=== PATIENT | female | born 1950 | race Caucasian/White ===

== ENCOUNTER 2016-04-12 17:46 | Emergency (ER) | payer MEDICARE, OTHER ==
--- NOTE | 2016-04-12 18:18 | ER Document Report ---
ED Medical Screen (RME) - General Chief Complaint: Back Pain Stated Complaint: BACK PAIN Time seen by provider: 18:17 Mode of Arrival: Wheelchair Information source: Patient Notes: 65-year-old female presents to ED for low back pain that started tonight when she was trying to move the bed about 5 PM states she heard a big pop. States pain goes from her back down hip down her legs bilaterally. Denies previous back pain. I have greeted and performed a rapid initial assessment of this patient. A comprehensive ED assessment and evaluation of the patient, analysis of test results and completion of medical decision making process will be conducted by an additional ED providers. TRAVEL OUTSIDE OF THE [place] IN LAST 30 DAYS: No - Related Data Allergies/Adverse Reactions: morphine [Morphine] Allergy (Verified 05/12/15 16:41) Penicillins Allergy (Verified 05/12/15 16:41) diphenhydramine HCl [From Benadryl] Adverse Reaction (Verified 05/12/15 16:41) Past Medical History - Past Medical History Cardiac Medical History: Reports: Hx Hypercholesterolemia Pulmonary Medical History: Reports: Hx COPD Endocrine Medical History: Reports: Hx Diabetes Mellitus Type 2 Psychiatric Medical History: Denies: Hx Depression Past Surgical History: Reports: Hx Hysterectomy, Hx Orthopedic Surgery - Kg Knee Arthroplasty, Hx Thyroid Surgery Physical Exam - Vital signs Vitals: Temp Pulse Resp BP Pulse Ox 97.5 F 72 22 H 119/57 L 97 04/12/16 18:10 04/12/16 18:10 04/12/16 18:10 04/12/16 18:10 04/12/16 18:10 Course - Vital Signs Vital signs: Temp Pulse Resp BP Pulse Ox 97.5 F 72 22 H 119/57 L 97 04/12/16 18:10 04/12/16 18:10 04/12/16 18:10 04/12/16 18:10 04/12/16 18:10
[2016-04-12] MEDS ORDERED: ONDANSETRON 4 MG TAB.RAPDIS PO ONE (18:19)
[2016-04-12] MEDS ORDERED: OXYCODONE-ACETAMINOPHEN 5-325 MG TABLET PO ONE (18:19)
[2016-04-12 19:50] VITALS: BP 124/60
[2016-04-12] MEDS ORDERED: PREDNISONE 20 MG TABLET PO ONE (19:53)
[2016-04-12] MEDS ORDERED: HYDROCODONE/ACETAMINOPHEN 5-325 MG 6 TAB/DSPK PO PRN (19:53)
--- NOTE | 2016-04-12 19:57 | ER Document Report ---
ED Neck/Back Problem - General Chief Complaint: Back Injury Stated Complaint: BACK PAIN Time seen by provider: 19:50 Mode of Arrival: Wheelchair Notes: Patient is a 65-year-old female that comes emergency department for chief complaint of pain in her lower back. Patient states she was moving a bed when she felt a sharp pain in her back and she thinks she heard a pop and she denies incontinence or inability to urinate she denies numbness or weakness. She denies any radiations of pain. She denies any fever. She denies history of back surgery or any back problems. She does state that she knows she has arthritis. TRAVEL OUTSIDE OF THE [place] IN LAST 30 DAYS: No - Related Data Allergies/Adverse Reactions: morphine [Morphine] Allergy (Verified 05/12/15 16:41) Penicillins Allergy (Verified 05/12/15 16:41) diphenhydramine HCl [From Benadryl] Adverse Reaction (Verified 05/12/15 16:41) Past Medical History - General Information source: Patient - Social History Smoking Status: Current Every Day Smoker Frequency of alcohol use: None Lives with: Family Family History: Reviewed & Not Pertinent Patient has suicidal ideation: No Patient has homicidal ideation: No - Past Medical History Cardiac Medical History: Reports: Hx Hypercholesterolemia Pulmonary Medical History: Reports: Hx COPD Endocrine Medical History: Reports: Hx Diabetes Mellitus Type 2 Renal/ Medical History: Denies: Hx Peritoneal Dialysis Psychiatric Medical History: Denies: Hx Depression Past Surgical History: Reports: Hx Hysterectomy, Hx Orthopedic Surgery - Kg Knee Arthroplasty, Hx Thyroid Surgery Review of Systems - Review of Systems Constitutional: No symptoms reported EENT: No symptoms reported Cardiovascular: No symptoms reported Respiratory: No symptoms reported Gastrointestinal: No symptoms reported Genitourinary: No symptoms reported Female Genitourinary: No symptoms reported Musculoskeletal: See HPI Skin: No symptoms reported Hematologic/Lymphatic: No symptoms reported Neurological/Psychological: No symptoms reported Physical Exam - Vital signs Vitals: Temp Pulse Resp BP Pulse Ox 97.5 F 72 22 H 119/57 L 97 04/12/16 18:10 04/12/16 18:10 04/12/16 18:10 04/12/16 18:10 04/12/16 18:10 Interpretation: Normal - General General appearance: Alert, Anxious In distress: Mild - Patient shifting in her chair, mildly uncomfortable - HEENT Head: Normocephalic, Atraumatic Eyes: Normal Conjunctiva: Normal Extraocular movements intact: Yes Eyelashes: Normal Pupils: PERRL Nasal: Normal Mouth/Lips: Normal Mucous membranes: Normal Pharynx: Normal Neck: Normal - Respiratory Respiratory status: No respiratory distress Chest status: Nontender Breath sounds: Normal. No: Decreased air movement, Wheezing Chest palpation: Normal - Cardiovascular Rhythm: Regular Heart sounds: Normal auscultation Murmur: No - Abdominal Inspection: Normal Distension: No distension Bowel sounds: Normal Tenderness: Nontender. No: Tender, Guarding Organomegaly: No organomegaly - Back Back: Tender - There are tender muscles over the paralumbar musculature and slight tenderness midline, no saddle anesthesia, full range of motion of all extremities, negative straight leg raise. Positive axial loading test. Will distal neurovascular exam. - Extremities General upper extremity: Normal inspection, Nontender, Normal color, Normal ROM , Normal temperature General lower extremity: Normal inspection, Nontender, Normal color, Normal ROM , Normal temperature, Normal weight bearing. No: Arelis's sign - Neurological Neuro grossly intact: Yes Cognition: Normal Orientation: AAOx4 [place] Coma Scale Eye Opening: Spontaneous [place] Coma Scale Verbal: Oriented [place] Coma Scale Motor: Obeys Commands [place] Coma Scale Total: 15 Speech: Normal Motor strength normal: LUE, RUE, LLE, RLE Sensory: Normal - Psychological Associated symptoms: Normal affect, Normal mood - Skin Skin Temperature: Warm Skin Moisture: Dry Skin Color: Normal Course - Re-evaluation Re-evalutation: I showed patient her x-ray imaging, shows likely chronic findings, patient states she's been told of these findings with the past and she knows these are chronic. No acute injuries definitely noted, no neurological deficits, patient with positive axial loading and suspected disc herniation injury. Patient will be treated, patient will follow-up with primary care, discussed return precautions. Patient states understanding and agreement. - Vital Signs Vital signs: Temp Pulse Resp BP Pulse Ox 97.8 F 71 20 124/60 97 04/12/16 19:49 04/12/16 19:49 04/12/16 19:49 04/12/16 19:49 04/12/16 19:49 Discharge - Discharge Clinical Impression: Lower back pain Qualifiers: Chronicity: acute Back pain laterality: bilateral Sciatica presence: without sciatica Qualified Code(s): M54.5 - Low back pain Condition: Stable Disposition: HOME, SELF-CARE Additional Instructions: Your symptoms and examination are very suggestive of a herniated disc. Rest, take prednisone as directed, take Percocet if needed for pain. Follow-up with primary care for additional evaluation and management. Return to the emergency department for any concerning or worsening symptoms including numbness, loss of bowel or bladder control, etc. Prescriptions: Oxycodone HCl/Acetaminophen [Percocet 5-325 mg Tablet] 1 - 2 tab PO Q4H PRN #20 tablet PRN Reason: Prednisone [Deltasone 10 mg Tablet] 10 mg PO ASDIR PRN #21 tablet PRN Reason: Forms: Return to Work Referrals: MARC PEARSON MD [Primary Care Provider] - Follow up as needed
== END 2016-04-12 20:03 | disposition home or self-care (01) ==
LOC: ER 17:46
DX: M54.5 Low back pain (principal); F17.200 Nicotine dependence, unspecified, uncomplicated; E78.00 Pure hypercholesterolemia, unspecified; J44.9 Chronic obstructive pulmonary disease, unspecified; E11.9 Type 2 diabetes mellitus without complications; Z88.0 Allergy status to penicillin; Z88.6 Allergy status to analgesic agent; Z90.710 Acquired absence of both cervix and uterus
CPT/HCPCS: 99283; 72110; A9270 ×4; J7512; S0119

== ENCOUNTER 2016-08-30 07:40 | Observation (INO) | payer MEDICARE, OTHER ==
[2016-08-30] MEDS ORDERED: ASPIRIN 81 MG TABLET, CHEWABLE PO ONE (07:46)
--- NOTE | 2016-08-30 08:19 | RADIOLOGY REPORT (SQ) ---
EXAM DESCRIPTION: CHEST SINGLE VIEW COMPLETED DATE/TIME: 08/30/2016 8:01 am REASON FOR STUDY: chest pain COMPARISON: August 2015 EXAM PARAMETERS: NUMBER OF VIEWS: One view. TECHNIQUE: Single frontal radiographic view of the chest acquired. RADIATION DOSE: NA LIMITATIONS: None. FINDINGS: LUNGS AND PLEURA: No opacities, masses or pneumothorax. No pleural effusion. MEDIASTINUM AND HILAR STRUCTURES: No masses. Contour normal. HEART AND VASCULAR STRUCTURES: Heart normal in size. Normal vasculature. BONES: No acute findings. HARDWARE: None in the chest. OTHER: No other significant finding. IMPRESSION: NO ACUTE RADIOGRAPHIC FINDING IN THE CHEST. TECHNICAL DOCUMENTATION: JOB ID: [id number]
[2016-08-30 08:39] LABS: ABSOLUTE BASOPHILS # (AUTO) 0.1 10^3/uL (0.0-0.2); ABSOLUTE EOSINOPHILS # (AUTO) 0.2 10^3/uL (0.0-0.6); ABSOLUTE LYMPHOCYTES (AUTO) 2.1 10^3/uL (0.5-4.7); ABSOLUTE MONOCYTES (AUTO) 0.3 10^3/uL (0.1-1.4); ABSOLUTE NEUT (AUTO) 4.1 10^3/uL (1.7-8.2); BASOPHILS % (AUTO) 0.8 % (0-2); EOSINOPHILS % (AUTO) 2.6 % (0-6); HEMATOCRIT 43.1 % (36.0-47.0); HEMOGLOBIN 14.2 g/dL (12.0-15.5); HGB HCT DIFFERENCE -0.5; LYMPHOCYTES % (AUTO) 31.7 % (13-45); MEAN CORPUSCULAR HEMOGLOBIN 29.7 pg (27.0-33.4); MEAN CORPUSCULAR HGB CONC 32.9 g/dL (32.0-36.0); MEAN CORPUSCULAR VOLUME 90 fl (80-97); MONOCYTES % (AUTO) 4.6 % (3-13); RED BLOOD COUNT 4.78 10^6/uL (3.72-5.28); RED CELL DISTRIBUTION WIDTH 14.4 % (11.5-14.0); SEGMENTED NEUTROPHILS % (AUTO) 60.3 % (42-78); WHITE BLOOD COUNT 6.7 10^3/uL (4.0-10.5)
--- NOTE | 2016-08-30 09:03 | RADIOLOGY REPORT (SQ) ---
EXAM DESCRIPTION: CT HEAD WITHOUT COMPLETED DATE/TIME: 08/30/2016 8:52 am REASON FOR STUDY: L sided numbness COMPARISON: August 2015 TECHNIQUE: Axial images acquired through the brain without intravenous contrast. Images reviewed wi th bone, brain and subdural windows. Images stored on PACS. All CT scanners at this facility use dose modulation, iterative reconstruction, and/or weight based d osing when appropriate to reduce radiation dose to as low as reasonably achievable (ALARA). [facility]: Dose Right [facility]: CareDose [facility]: Dose Right [facility]: Teradose 4D [facility]: Hazel Mail RADIATION DOSE: 64.61 mGy. LIMITATIONS: None. FINDINGS: VENTRICLES: Normal size and contour. CEREBRUM: No masses. No hemorrhage. No midline shift. Normal issa/white matter differentiation. N o evidence for acute infarction. CEREBELLUM: No masses. No hemorrhage. No alteration of density. No evidence for acute infarction. EXTRAAXIAL SPACES: No fluid collections. No masses. ORBITS AND GLOBE: No intra- or extraconal masses. Normal contour of globe without masses. CALVARIUM: No fracture. PARANASAL SINUSES: No fluid or mucosal thickening. SOFT TISSUES: No mass or hematoma. OTHER: No other significant finding. IMPRESSION: NORMAL BRAIN CT WITHOUT CONTRAST. TECHNICAL DOCUMENTATION: JOB ID: [id number] Quality ID # [id number]: Final reports with documentation of one or more dose reduction techniques (e.g., Au tomated exposure control, adjustment of the mA and/or kV according to patient size, use of iterative reconstruction technique) 2010 [employer]- All Rights Reserved
[2016-08-30 09:11] LABS: ALANINE AMINOTRANSFERASE 26 U/L (9-52); ALBUMIN 4.1 g/dL (3.5-5.0); ALKALINE PHOSPHATASE 69 U/L (38-126); ANION GAP 11 (5-19); ASPARTATE AMINO TRANSFERASE 22 U/L (14-36); BILIRUBIN,DIRECT 0.4 mg/dL (0.0-0.4); BILIRUBIN,TOTAL 0.5 mg/dL (0.2-1.3); BLOOD UREA NITROGEN 16 mg/dL (7-20); CALCIUM 9.1 mg/dL (8.4-10.2); CARBON DIOXIDE 26 mmol/L (22-30); CHLORIDE 106 mmol/L (98-107); CREATINE KINASE 71 U/L (30-135); CREATININE RESULT 0.61 mg/dL (0.52-1.25); GLUCOSE 95 mg/dL (75-110); POTASSIUM 4.1 mmol/L (3.6-5.0); SODIUM 142.8 mmol/L (137-145); TOTAL PROTEIN 7.3 g/dL (6.3-8.2)
[2016-08-30 09:21] LABS: CREATINE KINASE MB 0.95 ng/mL (<4.55)
[2016-08-30 09:22] LABS: TROPONIN I < 0.012 ng/mL
--- NOTE | 2016-08-30 09:24 | EKG REPORT ---
SEVERITY:- NORMAL ECG - SINUS RHYTHM : Confirmed by: Jacki Bhatt 30-Aug-2016 09:23:14
[2016-08-30] MEDS ORDERED: LABETALOL HCL INJ 20 MG/4 ML DISP.SYRIN IV PRN (10:58)
[2016-08-30] MEDS ORDERED: ONDANSETRON 4 MG TAB.RAPDIS PO PRN (10:58)
[2016-08-30] MEDS ORDERED: TRAMADOL HCL 50 MG TABLET PO PRN (10:58)
[2016-08-30] MEDS ORDERED: ACETAMINOPHEN 325 MG TABLET PO PRN (10:58)
--- NOTE | 2016-08-30 10:58 | ER Document Report ---
ED General - General Chief Complaint: Neck Pain >24hrs old Stated Complaint: NECK PAIN Time Seen by Provider: 08/30/16 07:46 Mode of Arrival: Ambulatory Information source: Patient Notes: 65 yr old female presents with complaints of left neck pain that when it occurs causes left sided facial and arm leg numbness. pt denies any trauma. pt notes the pain has been intermittent TRAVEL OUTSIDE OF THE [place] IN LAST 30 DAYS: No - HPI Onset: Other Onset/Duration: Intermittent Quality of pain: Sharp Severity: Mild Pain Level: 1 Associated symptoms: Other Exacerbated by: Denies Relieved by: Denies Similar symptoms previously: Yes Recently seen / treated by doctor: No - Related Data Allergies/Adverse Reactions: morphine [Morphine] Allergy (Verified 08/30/16 11:49) onion Allergy (Verified 08/30/16 11:50) Penicillins Allergy (Verified 08/30/16 11:49) diphenhydramine HCl [From Benadryl] Adverse Reaction (Verified 08/30/16 11:49) Home Medications: Current Home Medications Levothyroxine Sodium [Synthroid] 137 mcg PO DAILY 08/30/16 [History] Rosuvastatin Calcium [Crestor 10 mg Tablet] 10 mg PO DAILY 08/30/16 [History] Past Medical History - Social History Smoking Status: Never Smoker Cigarette use (# per day): No Chew tobacco use (# tins/day): No Smoking Education Provided: No Family History: Reviewed & Not Pertinent - Past Medical History Cardiac Medical History: Reports: Hx Hypercholesterolemia Pulmonary Medical History: Reports: Hx COPD Endocrine Medical History: Reports: Hx Diabetes Mellitus Type 2 Renal/ Medical History: Denies: Hx Peritoneal Dialysis Psychiatric Medical History: Denies: Hx Depression Past Surgical History: Reports: Hx Hysterectomy, Hx Orthopedic Surgery - Kg Knee Arthroplasty, Hx Thyroid Surgery Review of Systems - Review of Systems Constitutional: No symptoms reported EENT: Other - neck pain Cardiovascular: No symptoms reported Respiratory: No symptoms reported Gastrointestinal: No symptoms reported Genitourinary: No symptoms reported Female Genitourinary: No symptoms reported Musculoskeletal: No symptoms reported Skin: No symptoms reported Hematologic/Lymphatic: No symptoms reported Neurological/Psychological: Other Physical Exam - Vital signs Vitals: Pulse Ox 97 08/30/16 07:46 Interpretation: Normal - General General appearance: Appears well, Alert - HEENT Head: Normocephalic, Atraumatic Eyes: Normal Pupils: PERRL Neck: Other. No: Normal, Anterior cervical chain, Posterior cervical chain, Brudzinski, Carotid bruit - tender left lateral neck , no bruit, Kernig's, Lymphadenopathy, Meningismus, Neck mass, Shotty nodes, Subcutaneous emphysema, Supple, Thyroid nodule, Thyromegally - Respiratory Respiratory status: No respiratory distress Chest status: Nontender Breath sounds: Normal Chest palpation: Normal - Cardiovascular Rhythm: Regular Heart sounds: Normal auscultation Murmur: No - Abdominal Inspection: Normal Distension: No distension Bowel sounds: Normal Tenderness: Nontender Organomegaly: No organomegaly - Back Back: Normal, Nontender - Extremities General upper extremity: Normal inspection, Nontender, Normal color, Normal ROM , Normal temperature General lower extremity: Normal inspection, Nontender, Normal color, Normal ROM , Normal temperature, Normal weight bearing. No: Arelis's sign - Psychological Associated symptoms: Normal affect, Normal mood - Skin Skin Temperature: Warm Skin Moisture: Dry Skin Color: Normal Course - Re-evaluation Re-evalutation: 08/30/16 16:01 I have extremely low suspicion for a cva, possible tia, but otherwise looks well , no bruit, possible carotid involvement - Vital Signs Vital signs: Temp Pulse Resp BP Pulse Ox 76 18 118/69 97 08/30/16 15:58 08/30/16 15:58 08/30/16 15:58 08/30/16 15:58 - Laboratory Result Diagrams: 08/30/16 08:13 08/30/16 08:13 Laboratory results interpreted by me: 08/30/16 08:13 RDW 14.4 H - Diagnostic Test Radiology reviewed: Image reviewed, Reports reviewed Discharge - Discharge Clinical Impression: Neck pain on left side, left sided paresthesia Admitting Provider: Hospitalist Unit Admitted: Telemetry
[2016-08-30] MEDS ORDERED: ASPIRIN 325 MG TABLET, ENT COATED PO ONE (12:00)
[2016-08-30] MEDS: HEPARIN SOD (PORCINE) 5,000 UNIT/ML 1 ML SYRINGE SUBCUT SCH ×2 (15:33→22:11)
--- NOTE | 2016-08-30 17:28 | RADIOLOGY REPORT (SQ) ---
EXAM DESCRIPTION: MRA HEAD WITHOUT COMPLETED DATE/TIME: 08/30/2016 5:08 pm REASON FOR STUDY: TIA aneurysm hx COMPARISON: None. TECHNIQUE: Axial 3-D [id number]-[id number] acquisition imaging performed through the brain in the area of t he lower elwha of [place]. Images reformatted using 3-D MIPS. LIMITATIONS: None. FINDINGS: SOURCE IMAGES: 3 x 4 mm wide necked aneurysm in the supraclinoid portion of the left inter nal carotid artery just distal from the ophthalmic artery takeoff. No other aneurysm or evidence for conclusion. No large masses identified. 3-D MIP: No aneurysm. No occlusions. No significant stenosis. OTHER: No other significant finding. IMPRESSION: 3 x 4 mm wide necked aneurysm in the supraclinoid portion of the left internal carotid a rtery just distal from the ophthalmic artery takeoff. TECHNICAL DOCUMENTATION: JOB ID: [id number] [employer]- All Rights Reserved
--- NOTE | 2016-08-30 17:32 | RADIOLOGY REPORT (SQ) ---
EXAM DESCRIPTION: MRA NECK COMBO COMPLETED DATE/TIME: 08/30/2016 5:07 pm REASON FOR STUDY: tia symptoms when moves head COMPARISON: None. TECHNIQUE: Axial 2-D volume acquisition imaging through the extracranial carotid and vertebral arter ies with reformatting using 3-D MIPS. LIMITATIONS: Moderate susceptibility artifact from thyroid surgical clips. FINDINGS: RIGHT CAROTID ARTERY: No stenosis or occlusive changes. Limited visualization of the orig in. LEFT CAROTID ARTERY: No stenosis or occlusive changes. Limited visualization of the origin. VERTEBRAL ARTERY: The extracranial portions of the vertebral basilar system are preserved without benjamin nosis. No aneurysmal dilatation or dissection is seen. OTHER: No other significant finding. IMPRESSION: NO SIGNIFICANT STENOSIS. COMMENT: Quality ID #[id number]: Measurements of distal internal carotid diameter were used as the denomin ator for stenosis measurement. TECHNICAL DOCUMENTATION: JOB ID: [id number] [employer]- All Rights Reserved
--- NOTE | 2016-08-30 18:16 | RADIOLOGY REPORT (SQ) ---
EXAM DESCRIPTION: MRI HEAD COMBO COMPLETED DATE/TIME: 08/30/2016 5:07 pm REASON FOR STUDY: tia COMPARISON: Head CT 09/04/2015 TECHNIQUE: Multiplanar imaging includes noncontrasted T1, T2, FLAIR, diffusion with ADC map and post gadolinium contrast T1 sequences. Images stored on PACS. CONTRAST TYPE AND DOSE: 20 mL Multihance. RENAL FUNCTION: GFR > 60. LIMITATIONS: None. FINDINGS: ANATOMY: No anomalies. 3 x 4 mm left supraclinoid ICA aneurysm. Otherwise vascular flow voids within normal limits. Pituitary fossa normal. CSF SPACES: Normal in size and contour. No hemorrhage. CEREBRUM: Sulci and gyri normal in size and contour. Age-appropriate white matter signal on FLAIR im aging. No evidence of hemorrhage, mass, or extraaxial fluid collection. No enhancing lesions.. POSTERIOR FOSSA: No signal alteration. No hemorrhage. No edema, masses, or mass effect. Internal amanda tory canals, cerebellopontine angles, mastoids normal. No enhancing lesions. DIFFUSION IMAGING: Negative for acute or subacute infarction. ORBITS: No masses. Globes normal. PARANASAL SINUSES: No fluid levels. Mucosa normal. OTHER: No other significant finding. IMPRESSION: Negative for acute or subacute infarction.No enhancing lesions. 3 x 4 mm left supraclin oid ICA aneurysm. TECHNICAL DOCUMENTATION: JOB ID: [id number]- All Rights Reserved
[2016-08-30] MEDS ORDERED: CELECOXIB 200 MG CAPSULE PO ONE (19:00)
--- NOTE | 2016-08-30 19:07 | PDOC H&P ---
History of Present Illness Admission Date/PCP: 08/30/16 10:59 MARC PEARSON MD History of Present Illness: JONATHAN DICKEY is a 65 year old female history of prior CVA, unruptured brain aneurysm, tobacco abuse, hypertension, hyperlipidemia, hypothyroidism who presents to the emergency department with complaints of left-sided neck pain that causes her to have numbness on the left side of her body including arm leg and face. Patient reports she does not have any numbness at this time. She is referred to the hospital service for concern for stroke. Past Medical History Cardiac Medical History: Reports: Hyperlipidema Pulmonary Medical History: Reports: Chronic Obstructive Pulmonary Disease (COPD) Neurological Medical History: Reports: Ischemic CVA, Other - Aneurysm Endocrine Medical History: Reports: Diabetes Mellitus Type 2, Hypothyroidism Psychiatric Medical History: Denies: Depression Past Surgical History Past Surgical History: Reports: Hysterectomy, Orthopedic Surgery - [place] Knee Arthroplasty, Thyroidectomy Social History Smoking Status: Current Every Day Smoker Cigarettes Packs Per Day: 1 Frequency of Alcohol Use: None Hx Recreational Drug Use: No Drugs: None Hx Prescription Drug Abuse: No - Advance Directive Resuscitation Status: Full Code Surrogate healthcare decision maker:: Amcarmine James, daughter Family History Family History: CAD, Hyperlipidemia, Malignancy Parental Family History Reviewed: Yes Children Family History Reviewed: Yes Sibling(s) Family History Reviewed.: Yes Medication/Allergy Home Medications: Levothyroxine Sodium [Synthroid] 137 mcg PO DAILY 08/30/16 Rosuvastatin Calcium [Crestor 10 mg Tablet] 10 mg PO DAILY 08/30/16 Allergies/Adverse Reactions: morphine [Morphine] Allergy (Verified 08/30/16 11:49) onion Allergy (Verified 08/30/16 11:50) Penicillins Allergy (Verified 08/30/16 11:49) diphenhydramine HCl [From Benadryl] Adverse Reaction (Verified 08/30/16 11:49) Review of Systems Constitutional: PRESENT: weight loss. ABSENT: chills, fever(s), headache(s), weight gain Eyes: ABSENT: visual disturbances Ears: ABSENT: hearing changes Cardiovascular: ABSENT: chest pain, dyspnea on exertion, edema, orthropnea, palpitations Respiratory: ABSENT: cough, hemoptysis Gastrointestinal: ABSENT: abdominal pain, constipation, diarrhea, hematemesis, hematochezia, nausea, vomiting Genitourinary: ABSENT: dysuria, hematuria Musculoskeletal: PRESENT: back pain. ABSENT: joint swelling Integumentary: ABSENT: rash, wounds Neurological: PRESENT: as per HPI, numbness. ABSENT: abnormal gait, abnormal speech, confusion, dizziness, focal weakness, syncope Psychiatric: ABSENT: anxiety, depression, homidical ideation, suicidal ideation Endocrine: ABSENT: cold intolerance, heat intolerance, polydipsia, polyuria Hematologic/Lymphatic: ABSENT: easy bleeding, easy bruising Physical Exam Vital Signs: Temp Pulse Resp BP Pulse Ox 76 18 118/69 97 08/30/16 15:58 08/30/16 15:58 08/30/16 15:58 08/30/16 15:58 Intake & Output 08/29/16 08/30/16 08/31/16 06:59 06:59 06:59 Weight 39.916 kg General appearance: PRESENT: no acute distress, thin Head exam: PRESENT: atraumatic, normocephalic Eye exam: PRESENT: conjunctiva pink, EOMI, PERRLA. ABSENT: scleral icterus Ear exam: PRESENT: normal external ear exam, other - serous effusion on left Mouth exam: PRESENT: moist, tongue midline Neck exam: PRESENT: other - thyroid absent. ABSENT: carotid bruit, JVD, lymphadenopathy, thyromegaly Respiratory exam: PRESENT: clear to auscultation [place], prolonged expiratory phas , wheezes - taqueria. ABSENT: crackles, rales, rhonchi Cardiovascular exam: PRESENT: RRR, +S1, +S2. ABSENT: diastolic murmur, gallop, rubs, systolic murmur, tachycardia Pulses: PRESENT: normal dorsalis pedis pul Vascular exam: PRESENT: normal capillary refill GI/Abdominal exam: PRESENT: normal bowel sounds, soft. ABSENT: distended, firm , guarding, mass, Bearden's sign, organolmegaly, rebound, rigid, tenderness Rectal exam: PRESENT: deferred Extremities exam: PRESENT: full ROM. ABSENT: calf tenderness, clubbing, pedal edema Musculoskeletal exam: PRESENT: other - Kyphoscoliosis Neurological exam: PRESENT: alert, awake, oriented to person, oriented to place , oriented to time, oriented to situation, CN II-XII grossly intact. ABSENT: motor sensory deficit Psychiatric exam: PRESENT: appropriate affect, normal mood. ABSENT: homicidal ideation, suicidal ideation Skin exam: PRESENT: dry, intact, warm. ABSENT: cyanosis, rash Results Laboratory Results: 08/30/16 15:42 Troponin I < 0.012 Impressions: Head CT 08/30/16 00:00 IMPRESSION: NORMAL BRAIN CT WITHOUT CONTRAST. Chest X-Ray 08/30/16 07:46 IMPRESSION: NO ACUTE RADIOGRAPHIC FINDING IN THE CHEST. Assessment & Plan - Diagnosis (1) Arm paresthesia, left Is this a current diagnosis for this admission?: YesPlan: Work up for TIA. Obtain MRA of neck, and MRI/MRA of head. Likely secondary to arthritis muscular skeletal complaint. Tramadol as needed. Review of patient' s old lumbar spine x-ray reveals multiple compression fractures and patient had a profound kyphosis. (2) Neck pain on left side Is this a current diagnosis for this admission?: YesPlan: tramadol As needed (3) COPD (chronic obstructive pulmonary disease) Qualifiers: COPD type: COPD with acute exacerbation Qualified Code(s): J44.1 - Chronic obstructive pulmonary disease with (acute) exacerbation Is this a current diagnosis for this admission?: YesPlan: Combivent prednisone (4) Tobacco abuse Is this a current diagnosis for this admission?: YesPlan: Stop and offered nicotine patch. (5) CVA, old, alterations of sensations Is this a current diagnosis for this admission?: YesPlan: Had a prior CVA which affected the left side of her body (6) HLD (hyperlipidemia) Is this a current diagnosis for this admission?: Yes (7) Hypothyroid Qualifiers: Hypothyroidism type: postoperative Qualified Code(s): E89.0 - Postprocedural hypothyroidism Is this a current diagnosis for this admission?: YesPlan: Reports a history of multinodular goiter and had thyroidectomy. Recent increase in Synthroid. (8) Underweight Is this a current diagnosis for this admission?: Yes - Time Time Spent: 50 to 70 Minutes Medications reviewed and adjusted accordingly: Yes Anticipated discharge: Home Within: within 24 hours
[2016-08-30] MEDS ORDERED: PREDNISONE 20 MG TABLET PO ONE (20:00)
[2016-08-30] MEDS ORDERED: SIMVASTATIN 40 MG TABLET PO SCH (22:00)
[2016-08-30] MEDS: IPRATROPIUM/ALBUTEROL 120 PUFF/4 GM MDI IH SCH (22:11)
[2016-08-30] MEDS: FLUTICASONE NASAL SPRAY 50 MCG/SPRY 120 SPRAY/16 GM NASL SCH (22:14)
[2016-08-31] MEDS: HEPARIN SOD (PORCINE) 5,000 UNIT/ML 1 ML SYRINGE SUBCUT SCH ×2 (05:27→15:01)
[2016-08-31] MEDS: IPRATROPIUM/ALBUTEROL 120 PUFF/4 GM MDI IH SCH ×3 (05:28→15:04)
[2016-08-31] MEDS ORDERED: LEVOTHYROXINE SODIUM 0.112 MG TABLET PO SCH (08:00)
[2016-08-31] MEDS ORDERED: LEVOTHYROXINE SODIUM 0.025 MG TABLET PO SCH (08:00)
[2016-08-31] MEDS: FLUTICASONE NASAL SPRAY 50 MCG/SPRY 120 SPRAY/16 GM NASL SCH (09:43)
[2016-08-31] MEDS ORDERED: LIDOCAINE 5% (700 MG) TRANSDERMAL ADH..PATCH TP SCH (10:00)
[2016-08-31] MEDS ORDERED: (PENDING PHARMACY ID) (Levothyroxine Sodium [Synthroid] 137 MCG) PO SCH (10:00)
[2016-08-31] MEDS ORDERED: CELECOXIB 200 MG CAPSULE PO SCH (10:00)
[2016-08-31] MEDS ORDERED: ASPIRIN 325 MG TABLET, ENT COATED PO SCH (10:00)
[2016-08-31] MEDS ORDERED: PREDNISONE 20 MG TABLET PO SCH (10:00)
--- NOTE | 2016-08-31 10:23 | RADIOLOGY REPORT (SQ) ---
EXAM DESCRIPTION: CERV SP 4 OR 5 VIEWS COMPLETED DATE/TIME: 08/30/2016 11:48 pm REASON FOR STUDY: Left-sided neck pain COMPARISON: None. NUMBER OF VIEWS: Five views. TECHNIQUE: AP, lateral, obliques and odontoid radiographic images acquired of the cervical spine. LIMITATIONS: None. FINDINGS: MINERALIZATION: Osteopenia. ALIGNMENT: Anatomic. VERTEBRAE: Vertebral bodies of normal height. DISCS: There is mild narrowing of the C6-7 disc space. FORAMINA: No osteophytes or foraminal narrowing. LATERAL AND POSTERIOR ELEMENTS: Facets, lateral masses and spinous processes without significant find ings. HARDWARE: Multiple surgical clips are present suggesting thyroid surgery. SOFT TISSUES: No masses or calcifications. Lung apices clear. OTHER: No other significant finding. IMPRESSION: Mild degenerative disc changes. TECHNICAL DOCUMENTATION: JOB ID: [id number] [employer]- All Rights Reserved
--- NOTE | 2016-08-31 11:05 | EKG REPORT ---
SEVERITY:- BORDERLINE ECG - SINUS RHYTHM SHORT ME INTERVAL, ACCELERATED AV CONDUCTION : Confirmed by: Jacki Bhatt 31-Aug-2016 11:04:22
--- NOTE | 2016-08-31 13:49 | RADIOLOGY REPORT (SQ) ---
EXAM DESCRIPTION: MRI CERVICAL SPINE WITHOUT COMPLETED DATE/TIME: 08/31/2016 1:22 pm REASON FOR STUDY: pressure in left neck COMPARISON: None. TECHNIQUE: Sagittal and Axial imaging includes T1, T2, STIR and gradient echo sequences. LIMITATIONS: None. FINDINGS: ALIGNMENT: Normal. VERTEBRAE: Intact. BONE MARROW: Normal. No marrow replacement or reactive changes. DISCS: Normal. No significant abnormal signal or loss of height. HARDWARE: None in the spine. CORD AND BASE OF BRAIN: Normal in size and signal intensity. SOFT TISSUES: No soft tissue masses. C1-C2: No significant spinal stenosis. C2-C3: No significant spinal stenosis or exit foraminal stenosis. C3-C4: No significant spinal stenosis or exit foraminal stenosis. C4-C5: No significant spinal stenosis or exit foraminal stenosis. C5-C6: Minimal central disc bulge. No significant spinal stenosis or exit foraminal stenosis. C6-C7: Mild posterior disc and osteophyte. No significant spinal stenosis or exit foraminal stenosis . C7-T1: No significant spinal stenosis or exit foraminal stenosis. UPPER THORACIC: Incompletely imaged. No significant spinal stenosis or exit foraminal stenosis. OTHER: No other significant finding. IMPRESSION: MILD CHRONIC DEGENERATIVE DISC DISEASE IN THE LOWER CERVICAL SPINE. NO STENOSIS OR IMPI NGEMENT. TECHNICAL DOCUMENTATION: JOB ID: [id number] [employer]- All Rights Reserved
[2016-08-31 16:16] VITALS: BP 100/60
--- NOTE | 2016-08-31 17:32 | PDOC DISCHARGE SUMMARY ---
General - Admit/Disc Date/PCP Admission Date/Primary Care Provider: 08/30/16 10:59 CRISTIAN HINSON MD Discharge Date: 08/31/16 - Discharge Diagnosis (1) Abnormal sensation of upper extremity Is this a current diagnosis for this admission?: Yes (2) Carotid aneurysm, left Is this a current diagnosis for this admission?: Yes (3) COPD (chronic obstructive pulmonary disease) Is this a current diagnosis for this admission?: Yes (4) HLD (hyperlipidemia) Is this a current diagnosis for this admission?: Yes (5) Tobacco abuse Is this a current diagnosis for this admission?: Yes - Additional Information Resuscitation Status: Full Code Discharge Diet: Cardiac Discharge Activity: Activity As Tolerated Home Medications: Levothyroxine Sodium [Synthroid] 137 mcg PO DAILY 08/30/16 Rosuvastatin Calcium [Crestor 10 mg Tablet] 10 mg PO DAILY 08/30/16 History of Present Illness Patient complains of: Left neck numbness History of Present Illness: JONATHAN DICKEY is a 65 year old female history of prior CVA, unruptured brain aneurysm, tobacco abuse, hypertension, hyperlipidemia, hypothyroidism who presents to the emergency department with complaints of left-sided neck pain that causes her to have numbness on the left side of her body including arm leg and face. Patient reports she does not have any numbness at this time. She is referred to the hospital service for concern for stroke. Hospital Course Hospital Course: Patient admitted for left neck numbness. Ruled out for stroke with imaging mentioned below. MRA of the head and neck indicate left internal carotid artery aneurysm for which patient has been referred as an outpatient to neurosurgery. MRI of the cervical spine shows no herniated disc, no nerve impingement. Cardiac enzymes negative 2 sets. Patient states she had a normal stress test 2 years ago. She is to follow-up with her primary care provider Dr. Cristian Hinson. She is referred to neurosurgery as well. Physical Exam Vital Signs: Temp Pulse Resp BP Pulse Ox 98.6 F 85 18 100/60 96 08/31/16 16:36 08/31/16 16:36 08/31/16 16:36 08/31/16 16:00 08/31/16 16:36 Intake & Output 08/30/16 08/31/16 09/01/16 06:59 06:59 06:59 Intake Total 425 575 Output Total 0 Balance 425 575 Weight 38.5 kg Results Laboratory Results: 08/30/16 15:42 Troponin I < 0.012 Impressions: Brain MRI with MRA 08/30/16 00:00 IMPRESSION: 3 x 4 mm wide necked aneurysm in the supraclinoid portion of the left internal carotid artery just distal from the ophthalmic artery takeoff. Cervical Spine X-Ray 08/30/16 00:00 IMPRESSION: Mild degenerative disc changes. Head CT 08/30/16 00:00 IMPRESSION: NORMAL BRAIN CT WITHOUT CONTRAST. Chest X-Ray 08/30/16 07:46 IMPRESSION: NO ACUTE RADIOGRAPHIC FINDING IN THE CHEST. Head MRI 08/30/16 11:01 IMPRESSION: Negative for acute or subacute infarction.No enhancing lesions. 3 x 4 mm left supraclinoid ICA aneurysm. Neck MRA 08/30/16 11:01 IMPRESSION: NO SIGNIFICANT STENOSIS. Cervical Spine MRI 08/31/16 00:00 IMPRESSION: MILD CHRONIC DEGENERATIVE DISC DISEASE IN THE LOWER CERVICAL SPINE. NO STENOSIS OR IMPINGEMENT. Qualifiers PATEINT BEING DISCHARGED WITH ANY OF THE FOLLOWING DIAGNOSIS?: No Plan Time Spent: Less than 30 Minutes
== END 2016-08-31 17:21 | disposition home or self-care (01) ==
LOC: ER 07:40 → EH 10:59 → 3S 13:34
PROVIDERS: ADMIT Family Medicine; ATTEND Family Medicine
DX: R20.0 Anesthesia of skin (principal); R20.9 Unspecified disturbances of skin sensation; I72.0 Aneurysm of carotid artery; J44.1 Chronic obstructive pulmonary disease with (acute) exacerbation; E78.5 Hyperlipidemia, unspecified; E11.9 Type 2 diabetes mellitus without complications; M50.30 Other cervical disc degeneration, unspecified cervical region; E89.0 Postprocedural hypothyroidism; M54.2 Cervicalgia; F17.210 Nicotine dependence, cigarettes, uncomplicated; M54.9 Dorsalgia, unspecified; I69.398 Other sequelae of cerebral infarction; R63.6 Underweight; I67.1 Cerebral aneurysm, nonruptured; M40.209 Unspecified kyphosis, site unspecified; Z79.899 Other long term (current) drug therapy; Z82.49 Family history of ischemic heart disease and other diseases of the circulatory system; Z87.311 Personal history of (healed) other pathological fracture; Z68.1 Body mass index [BMI] 19.9 or less, adult
CPT/HCPCS: 93005 ×2; 99285; 36415; 82553; 82550; 85025; 80053; 84484; 70553; 72141; 70544; 70549; 72050; 71010; 70450; 93010 ×2; 97163; 97166; A9577; A9270 ×9; J1644 ×2; J3490 ×2; G8987; G8988; G8989; G8978-GP; G8979-GP; G8980-GP; J7512

== ENCOUNTER 2017-04-27 07:41 | Day surgery (SDC) | payer MEDICARE, OTHER ==
[~2017-04-27 07:41] MED LIST: KETOROLAC TROMETHAMINE 0.45% 4 DROP/0.4 ML DROPERETTE OD PRN
[2017-04-27] MEDS: TROPICAMIDE 1% OPH SOLN 3 ML OD PRN ×3 (08:05→08:25)
[2017-04-27] MEDS: CYCLOPENTOLATE 0.2%/PHENYLEPHRINE 1% OPH SOLN 2 ML OD PRN ×3 (08:05→08:25)
[2017-04-27] MEDS: BESIFLOXACIN HCL 0.6% OPH SUSP 5 ML BOTTLE OD PRN ×4 (08:05→09:05)
[2017-04-27] MEDS: TETRACAINE HCL 0.5% OPH SOLN 0.6 ML DROPERETTE OD PRN ×4 (08:06→08:45)
[2017-04-27] MEDS ORDERED: FENTANYL CITRATE INJ/PF 100 MCG/2 ML AMPUL ONE (08:27)
[2017-04-27] MEDS ORDERED: MIDAZOLAM 2 MG/2 ML INJ ONE (08:27)
[2017-04-27] MEDS ORDERED: ONDANSETRON HCL INJ/PF 4 MG/2 ML SDV ONE (08:30)
[2017-04-27] MEDS: EPINEPHRINE INJ/PF 1 MG/1 ML AMPULE ONE ×2 (08:55)
[2017-04-27] MEDS: CHONDR SU A NA/HYALUR INTRAOC KIT (SURGICARE) ONE ×2 (08:55)
[2017-04-27] MEDS: LIDOCAINE 1% INJ-PF (10 MG/ML) 30 ML SDV ONE ×2 (08:55)
[2017-04-27] MEDS: TOBRAMYCIN SULFATE/DEXAMETH OPH OINTMENT 3.5 GM ONE ×2 (09:05)
== END 2017-04-27 09:44 | disposition home or self-care (01) ==
LOC: SC 07:41
PROVIDERS: ATTEND Ophthalmology
PROC: 08RJ3JZ Replacement of Right Lens with Synthetic Substitute, Percutaneous Approach (ICD-10-PCS; principal; 2017-04-27 08:30)
DX: H25.11 Age-related nuclear cataract, right eye (principal); F17.210 Nicotine dependence, cigarettes, uncomplicated; E78.00 Pure hypercholesterolemia, unspecified; E03.9 Hypothyroidism, unspecified; J44.9 Chronic obstructive pulmonary disease, unspecified; Z79.899 Other long term (current) drug therapy; Z88.1 Allergy status to other antibiotic agents; Z88.8 Allergy status to other drugs, medicaments and biological substances; Z86.73 Personal history of transient ischemic attack (TIA), and cerebral infarction without residual deficits; Z79.02 Long term (current) use of antithrombotics/antiplatelets; Z79.82 Long term (current) use of aspirin
CPT/HCPCS: 66984; V2630; J2250; J3490 ×3; A9270; J0171; J2405; 142; J3010

== ENCOUNTER 2017-05-11 07:24 | Day surgery (SDC) | payer MEDICARE, OTHER ==
[~2017-05-11 07:24] MED LIST changes: -KETOROLAC TROMETHAMINE 0.45% 4 DROP/0.4 ML DROPERETTE OD PRN; +KETOROLAC TROMETHAMINE 0.45% 4 DROP/0.4 ML DROPERETTE OS PRN; +MIDAZOLAM 2 MG/2 ML INJ ONE
[2017-05-11] MEDS: TETRACAINE HCL 0.5% OPH SOLN 0.6 ML DROPERETTE OS PRN ×3 (08:06→08:38)
[2017-05-11] MEDS: CYCLOPENTOLATE 0.2%/PHENYLEPHRINE 1% OPH SOLN 2 ML OS PRN ×3 (08:07→08:29)
[2017-05-11] MEDS: TROPICAMIDE 1% OPH SOLN 3 ML OS PRN ×3 (08:07→08:29)
[2017-05-11] MEDS: BESIFLOXACIN HCL 0.6% OPH SUSP 5 ML BOTTLE OS PRN ×4 (08:08→08:54)
[2017-05-11] MEDS: CHONDR SU A NA/HYALUR INTRAOC KIT (SURGICARE) ONE ×2 (08:45)
[2017-05-11] MEDS: EPINEPHRINE INJ/PF 1 MG/1 ML AMPULE ONE ×2 (08:45)
[2017-05-11] MEDS: LIDOCAINE 1% INJ-PF (10 MG/ML) 30 ML SDV ONE ×2 (08:45)
[2017-05-11] MEDS: TOBRAMYCIN SULFATE/DEXAMETH OPH OINTMENT 3.5 GM ONE ×2 (08:54)
== END 2017-05-11 09:34 | disposition home or self-care (01) ==
LOC: SC 07:24
PROVIDERS: ATTEND Ophthalmology
PROC: 08RK3JZ Replacement of Left Lens with Synthetic Substitute, Percutaneous Approach (ICD-10-PCS; principal; 2017-05-11 08:30)
DX: H25.12 Age-related nuclear cataract, left eye (principal); Z98.41 Cataract extraction status, right eye; E78.00 Pure hypercholesterolemia, unspecified; E03.9 Hypothyroidism, unspecified; F17.210 Nicotine dependence, cigarettes, uncomplicated; Z86.73 Personal history of transient ischemic attack (TIA), and cerebral infarction without residual deficits; Z88.0 Allergy status to penicillin; Z88.8 Allergy status to other drugs, medicaments and biological substances; Z79.899 Other long term (current) drug therapy
CPT/HCPCS: 66984; V2630; J2250; J3490 ×3; A9270; J0171; 142

== ENCOUNTER 2017-07-30 04:35 | Emergency (ER) | payer MEDICARE, OTHER ==
[2017-07-30] MEDS ORDERED: NAPROXEN 250 MG TABLET PO ONE (06:22)
--- NOTE | 2017-07-30 06:40 | ER Document Report ---
ED General - General Chief Complaint: Flu Symptoms Stated Complaint: WEAKNESS Time Seen by Provider: 07/30/17 06:15 Mode of Arrival: Ambulatory Information source: Patient Notes: 66-year-old female history of COPD presents with complaints of generalized body aches since this morning. Patient states she feels like she has the flu. She notes multiple sick contacts at work. She denies any nausea or vomiting admits to cough TRAVEL OUTSIDE OF THE [place] IN LAST 30 DAYS: No - HPI Onset: Just prior to arrival Onset/Duration: Sudden Quality of pain: Achy Severity: Moderate Pain Level: 2 Associated symptoms: Body/muscle aches Exacerbated by: Denies Relieved by: Denies Similar symptoms previously: No Recently seen / treated by doctor: No - Related Data Allergies/Adverse Reactions: onion Allergy (Severe, Verified 04/27/17 07:57) Anaphylaxis diphenhydramine HCl [From Benadryl] Allergy (Intermediate, Verified 04/27/17 07: 57) Hives Penicillins Allergy (Unknown, Verified 04/27/17 07:57) fentanyl Adverse Reaction (Severe, Verified 04/27/17 07:57) VOMITING morphine [Morphine] Adverse Reaction (Severe, Verified 04/27/17 07:57) VOMITING Past Medical History - Social History Smoking Status: Current Every Day Smoker Cigarette use (# per day): Yes Chew tobacco use (# tins/day): No Smoking Education Provided: No Family History: CAD, Hyperlipidemia, Malignancy Patient has suicidal ideation: No Patient has homicidal ideation: No - Past Medical History Cardiac Medical History: Reports: Hx Hypercholesterolemia Denies: Hx Heart Attack, Hx Hypertension Pulmonary Medical History: Reports: Hx COPD Denies: Hx Asthma Neurological Medical History: Reports: Hx Cerebrovascular Accident - 2014 REHAB NO DEFICITS . Denies: Hx Seizures Endocrine Medical History: Reports: Hx Diabetes Mellitus Type 2, Hx Hypothyroidism Renal/ Medical History: Denies: Hx Peritoneal Dialysis GI Medical History: Denies: Hx Hepatitis, Hx Hiatal Hernia, Hx Ulcer Psychiatric Medical History: Denies: Hx Depression Infectious Medical History: Denies: Hx Hepatitis Past Surgical History: Reports: Hx Hysterectomy, Hx Orthopedic Surgery - Kg Knee Arthroplasty, Hx Thyroid Surgery. Denies: Hx Mastectomy, Hx Open Heart Surgery, Hx Pacemaker - Immunizations Hx Pneumococcal Vaccination: 03/21/15 Review of Systems - Review of Systems Notes: REVIEW OF SYSTEMS: CONSTITUTIONAL : Possible fever EENT: Denies eye, ear, throat, or mouth pain or symptoms. Denies nasal or sinus congestion or discharge. Denies throat, tongue, or mouth swelling or difficulty swallowing. CARDIOVASCULAR: Denies chest pain. Denies palpitations or racing or irregular heart beat. Denies ankle edema. RESPIRATORY: Denies cough, cold, or chest congestion. Denies shortness of breath, difficulty breathing, or wheezing. GASTROINTESTINAL: Denies abdominal pain or distention. Denies nausea, vomiting , or diarrhea. Denies blood in vomitus, stools, or per rectum. Denies black, tarry stools. Denies constipation. GENITOURINARY: Denies difficulty urinating, painful urination, burning, frequency, blood in urine, or discharge. FEMALE GENITOURINARY: Denies vaginal bleeding, heavy or abnormal periods, irregular periods. Denies vaginal discharge or odor. MUSCULOSKELETAL: Admits to body aches SKIN: Denies rash, lesions or sores. HEMATOLOGIC : Denies easy bruising or bleeding. LYMPHATIC: Denies swollen, enlarged glands. NEUROLOGICAL: Denies confusion or altered mental status. Denies passing out or loss of consciousness. Denies dizziness or lightheadedness. Denies headache. Denies weakness or paralysis or loss of use of either side. Denies problems with gait or speech. Denies sensory loss, numbness, or tingling. Denies seizures. PSYCHIATRIC: Denies anxiety or stress. Denies depression, suicidal ideation, or homicidal ideation. ALL OTHER SYSTEMS REVIEWED AND NEGATIVE. PHYSICAL EXAMINATION: GENERAL: Frail-appearing female older than stated age HEAD: Atraumatic, normocephalic. EYES: Pupils equal round and reactive to light, extraocular movements intact, conjunctiva are normal. ENT: Nares patent, oropharynx clear without exudates. Moist mucous membranes. NECK: Normal range of motion, supple without lymphadenopathy LUNGS: Breath sounds clear to auscultation bilaterally and equal. No wheezes rales or rhonchi. Intermittent cough noted HEART: Regular rate and rhythm without murmurs ABDOMEN: Soft, nontender, nondistended abdomen. No guarding, no rebound. No masses appreciated. Female : deferred Musculoskeletal: Normal range of motion, no pitting or edema. No cyanosis. NEUROLOGICAL: Cranial nerves grossly intact. Normal speech, normal gait. Normal sensory, motor exams PSYCH: Normal mood, normal affect. SKIN: Warm, Dry, normal turgor, no rashes or lesions noted. Dictation was performed using [employer] voice recognition software Physical Exam - Vital signs Vitals: Temp Pulse Resp BP Pulse Ox 98.4 F 102 H 20 96/76 L 95 07/30/17 04:42 07/30/17 04:42 07/30/17 04:42 07/30/17 04:42 07/30/17 04:42 Course - Re-evaluation Re-evalutation: 07/30/17 06:40 Patient's presentation appears to be viral in nature, she has no specific area of tenderness notes her whole body just aches, x-ray as well as influenza testing have been ordered 07/30/17 07:26 X-ray and rapid flu were both negative this appears to be more of a viral syndrome, patient will be treated symptomatically with extremely close follow- up given history of COPD she has no airway difficulty at this time After performing a Medical Screening Examination, I estimate there is LOW risk for ACUTE CORONARY SYNDROME, PULMONARY EMBOLI, RESPIRATORY FAILURE, SEPSIS OR MENINGITIS, thus I consider the discharge disposition reasonable. I have reevaluated this patient multiple times and no significant life threatening changes are noted. The patient and I have discussed the diagnosis and risks, and we agree with discharging home with close follow-up. We also discussed returning to the Emergency Department immediately if new or worsening symptoms occur. We have discussed the symptoms which are most concerning (e.g., changing or worsening pain, trouble swallowing or breathing, neck stiffness, fever) that necessitate immediate return. - Vital Signs Vital signs: Temp Pulse Resp BP Pulse Ox 98.4 F 102 H 20 96/76 L 95 07/30/17 04:42 07/30/17 04:42 07/30/17 04:42 07/30/17 04:42 07/30/17 04:42 - Diagnostic Test Radiology reviewed: Image reviewed - Chest x-ray 2 view notes no acute abnormality, Reports reviewed Discharge - Discharge Clinical Impression: Generalized body aches URI (upper respiratory infection) Qualifiers: URI type: unspecified viral URI Qualified Code(s): J06.9 - Acute upper respiratory infection, unspecified Condition: Stable Disposition: HOME, SELF-CARE Instructions: Upper Respiratory Illness ([facility]) Forms: Return to Work Referrals: MARC PEARSON MD [Primary Care Provider] - Follow up as needed
[2017-07-30 07:01] LABS: A TYPE INFLUENZA AG NEGATIVE (NEGATIVE); B INFLUENZA AG NEGATIVE (NEGATIVE)
--- NOTE | 2017-07-30 07:02 | RADIOLOGY REPORT (SQ) ---
EXAM DESCRIPTION: XR CHEST 2 VIEWS CLINICAL HISTORY: 66 years Female, cough, copd COMPARISON: 6..17. FINDINGS: Emphysematous hyperinflation, clear parenchyma, normal cardiac silhouette, upper mediastinal clips, and chronic mild/moderate compression deformities of the lower and mid thoracic spine. IMPRESSION: No acute cardiopulmonary findings.
[2017-07-30 07:57] VITALS: BP 127/60
== END 2017-07-30 07:55 | disposition home or self-care (01) ==
LOC: ER 04:35
DX: J06.9 Acute upper respiratory infection, unspecified (principal); B97.89 Other viral agents as the cause of diseases classified elsewhere; M79.1 Myalgia; J44.9 Chronic obstructive pulmonary disease, unspecified; R05 Cough; E11.9 Type 2 diabetes mellitus without complications; F17.210 Nicotine dependence, cigarettes, uncomplicated; Z88.8 Allergy status to other drugs, medicaments and biological substances; Z88.0 Allergy status to penicillin; Z87.892 Personal history of anaphylaxis; Z91.018 Allergy to other foods
CPT/HCPCS: 99284; 87804; 71046; A9270

== ENCOUNTER 2017-09-05 14:33 | Emergency (ER) | payer MEDICARE, OTHER ==
[2017-09-05] MEDS ORDERED: NORMAL SALINE 1000 ML 1,000 ML IV PRN (16:03)
--- NOTE | 2017-09-05 16:07 | ER Document Report ---
ED Medical Screen (RME) - General Chief Complaint: Low Blood Pressure Stated Complaint: BLOOD PRESSURE PROBLEMS Time Seen by Provider: 09/05/17 16:01 Mode of Arrival: Ambulatory Information source: Patient, Relative TRAVEL OUTSIDE OF THE [place] IN LAST 30 DAYS: No - HPI Notes: 09/05/17 16:07 66 yr old female with a hx two CVAs, an aneurysm that was coiled last year at [facility] presents to the ER with complaints dizziness, LH, syncope while working aprox 3 hours ago. Reports she sat down, had BP checked by pharmacist, was 110's /80's, was advised to drink a bottle of water, which pt did drink, felt slightly better. BP rechecked, BP 140's/90's. Pt is on plavix. Denies any trauma. She smokes a 1ppd x 40 days. Denies fevers, chills, chest pain, palpitations, shortness of breath, dyspnea, nausea, vomiting, diarrhea, abdominal pain, hematuria,blurred vision, double vision, loss of vision, speech changes, headaches, wheezing, ST, URI, neck pain, weakness, bowel or bladder dysfunction, saddle anesthesia, numbness or tingling in bilateral upper or lower extremities equally, muscle paralysis, weakness in bilateral upper or lower extremities equally or rash. Denies IV drug use. I have greeted and performed a rapid initial assessment of this patient. A comprehensive ED assessment and evaluation of the patient, analysis of test results and completion of medical decision making process will be conducted by an additional ED providers. - Related Data Allergies/Adverse Reactions: onion Allergy (Severe, Verified 09/05/17 14:37) Anaphylaxis diphenhydramine HCl [From Benadryl] Allergy (Intermediate, Verified 09/05/17 14: 37) Hives Penicillins Allergy (Unknown, Verified 09/05/17 14:37) fentanyl Adverse Reaction (Severe, Verified 09/05/17 14:37) VOMITING morphine [Morphine] Adverse Reaction (Severe, Verified 09/05/17 14:37) VOMITING Past Medical History - Past Medical History Cardiac Medical History: Reports: Hx Hypercholesterolemia Denies: Hx Heart Attack, Hx Hypertension Pulmonary Medical History: Reports: Hx COPD Denies: Hx Asthma Neurological Medical History: Reports: Hx Cerebrovascular Accident - 2014 REHAB NO DEFICITS . Denies: Hx Seizures Endocrine Medical History: Reports: Hx Diabetes Mellitus Type 2, Hx Hypothyroidism Renal/ Medical History: Denies: Hx Peritoneal Dialysis GI Medical History: Denies: Hx Hepatitis, Hx Hiatal Hernia, Hx Ulcer Psychiatric Medical History: Denies: Hx Depression Infectious Medical History: Denies: Hx Hepatitis Past Surgical History: Reports: Hx Hysterectomy, Hx Orthopedic Surgery - Kg Knee Arthroplasty, Hx Thyroid Surgery. Denies: Hx Mastectomy, Hx Open Heart Surgery, Hx Pacemaker Physical Exam - Vital signs Vitals: Temp Pulse Resp BP Pulse Ox 97.6 F 94 14 130/64 H 93 09/05/17 14:39 09/05/17 14:39 09/05/17 14:39 09/05/17 14:39 09/05/17 14:39 - Respiratory Respiratory status: No respiratory distress Chest status: Nontender Breath sounds: Normal Chest palpation: Normal - Cardiovascular Rhythm: Regular Murmur: No Normal capillary refill: Yes Course - Vital Signs Vital signs: Temp Pulse Resp BP Pulse Ox 97.6 F 64 14 116/60 94 09/05/17 14:39 09/05/17 18:45 09/05/17 19:01 09/05/17 19:01 09/05/17 19:01 - Laboratory Result Diagrams: 09/05/17 17:30 09/05/17 17:30 Laboratory results interpreted by me: 09/05/17 17:30 RDW 14.5 H Doctor's Discharge - Discharge Referrals: MARC PEARSON MD [Primary Care Provider] - Follow up as needed
--- NOTE | 2017-09-05 17:05 | RADIOLOGY REPORT (SQ) ---
EXAM DESCRIPTION: CHEST SINGLE VIEW COMPLETED DATE/TIME: 09/05/2017 4:48 pm REASON FOR STUDY: syncope COMPARISON: 07/30/2017. EXAM PARAMETERS: NUMBER OF VIEWS: One view. TECHNIQUE: Single frontal radiographic view of the chest acquired. RADIATION DOSE: NA LIMITATIONS: None. FINDINGS: LUNGS AND PLEURA: Hyperinflation consistent with COPD. Linear densities right costophreni c angle consistent with chronic change. There is a discrete nodular density overlying the posterior right 6th rib. MEDIASTINUM AND HILAR STRUCTURES: Surgical clips are noted in the paratracheal regions. HEART AND VASCULAR STRUCTURES: The heart is normal with aortic atherosclerosis. BONES: Dorsal spondylosis. Old dorsal compression deformities. HARDWARE: None in the chest. OTHER: No other significant finding. IMPRESSION: 1. Nodular density noted in right upper lobe. Follow-up with CT could be obtained for further evaluation. 2. COPD. Chronic interstitial scarring right lung base. TECHNICAL DOCUMENTATION: JOB ID: [id number] [employer]- All Rights Reserved Reading location - IP/workstation name: [email or web address]
--- NOTE | 2017-09-05 17:16 | RADIOLOGY REPORT (SQ) ---
EXAM DESCRIPTION: CT HEAD WITHOUT COMPLETED DATE/TIME: 09/05/2017 4:51 pm REASON FOR STUDY: syncope COMPARISON: None. TECHNIQUE: Axial images acquired through the brain without intravenous contrast. Images reviewed wi th bone, brain and subdural windows. Images stored on PACS. All CT scanners at this facility use dose modulation, iterative reconstruction, and/or weight based d osing when appropriate to reduce radiation dose to as low as reasonably achievable (ALARA). [facility]: Dose Right [facility]: CareDose [facility]: Dose Right [facility]: Teradose 4D [facility]: Smart [employer] RADIATION DOSE: CT Rad equipment meets quality standard of care and radiation dose reduction techniq ues were employed. CTDIvol: 53.2 mGy. DLP: 964 mGy-cm. mGy. LIMITATIONS: None. FINDINGS: VENTRICLES: Normal size and contour. CEREBRUM: No masses. No hemorrhage. No midline shift. No evidence for acute infarction. Normal gra y/white matter differentiation. No areas of low density in the white matter. CEREBELLUM: No masses. No hemorrhage. No alteration of density. No evidence for acute infarction. EXTRAAXIAL SPACES: No fluid collections. No masses. ORBITS AND GLOBE: No intra- or extraconal masses. Normal contour of globe without masses. CALVARIUM: No fracture. PARANASAL SINUSES: Chronic mucosal thickening in the ethmoid sinuses. SOFT TISSUES: No mass or hematoma. OTHER: No other significant finding. IMPRESSION: NORMAL BRAIN CT WITHOUT CONTRAST. EVIDENCE OF ACUTE STROKE: NO. COMMENT: Quality ID # [id number]: Final reports with documentation of one or more dose reduction techniques (e.g., Automated exposure control, adjustment of the mA and/or kV according to patient size, use of iterative reconstruction technique) TECHNICAL DOCUMENTATION: JOB ID: [id number] 2010 [employer]- All Rights Reserved Reading location - IP/workstation name: [email or web address]
[2017-09-05 17:43] LABS: ABSOLUTE BASOPHILS # (AUTO) 0.1 10^3/uL (0.0-0.2); ABSOLUTE EOSINOPHILS # (AUTO) 0.2 10^3/uL (0.0-0.6); ABSOLUTE LYMPHOCYTES (AUTO) 2.5 10^3/uL (0.5-4.7); ABSOLUTE MONOCYTES (AUTO) 0.4 10^3/uL (0.1-1.4); ABSOLUTE NEUT (AUTO) 3.2 10^3/uL (1.7-8.2); BASOPHILS % (AUTO) 1.8 % (0-2); EOSINOPHILS % (AUTO) 3.2 % (0-6); HEMATOCRIT 43.9 % (36.0-47.0); HEMOGLOBIN 14.7 g/dL (12.0-15.5); LYMPHOCYTES % (AUTO) 39.1 % (13-45); MEAN CORPUSCULAR HGB CONC 33.4 g/dL (32.0-36.0); MEAN CORPUSCULAR VOLUME 87 fl (80-97); MONOCYTES % (AUTO) 5.8 % (3-13); PLATELET COUNT 367 10^3/uL (150-450); RED BLOOD COUNT 5.06 10^6/uL (3.72-5.28); RED CELL DISTRIBUTION WIDTH 14.5 % (11.5-14.0); SEGMENTED NEUTROPHILS % (AUTO) 50.1 % (42-78); TOTAL CELLS COUNTED % (AUTO) 100 %; WHITE BLOOD COUNT 6.4 10^3/uL (4.0-10.5)
[2017-09-05 17:57] LABS: INTERNATIONAL RATION (INR) 0.96; PROTHROMBIN TIME 13.3 SEC (11.4-15.4)
[2017-09-05 17:58] LABS: PARTIAL THROMBOPLASTIN TIME 26.1 SEC (23.5-35.8)
[2017-09-05 18:04] LABS: ALANINE AMINOTRANSFERASE 18 U/L (9-52); ALBUMIN 4.4 g/dL (3.5-5.0); ALKALINE PHOSPHATASE 106 U/L (38-126); ANION GAP 12 (5-19); ASPARTATE AMINO TRANSFERASE 19 U/L (14-36); BILIRUBIN,DIRECT 0.4 mg/dL (0.0-0.4); BILIRUBIN,TOTAL 0.5 mg/dL (0.2-1.3); BLOOD UREA NITROGEN 9 mg/dL (7-20); CALCIUM 9.8 mg/dL (8.4-10.2); CARBON DIOXIDE 25 mmol/L (22-30); CHLORIDE 107 mmol/L (98-107); CREATINE KINASE 89 U/L (30-135); GLUCOSE 85 mg/dL (75-110); POTASSIUM 4.2 mmol/L (3.6-5.0); SODIUM 143.8 mmol/L (137-145); TOTAL PROTEIN 7.5 g/dL (6.3-8.2)
[2017-09-05 18:18] LABS: TROPONIN I < 0.012 ng/mL
--- NOTE | 2017-09-05 19:34 | ER Document Report ---
ED General - General Chief Complaint: Low Blood Pressure Stated Complaint: BLOOD PRESSURE PROBLEMS Time Seen by Provider: 09/05/17 16:01 Mode of Arrival: Ambulatory Notes: The patient is a 66-year-old female with a past medical history of intracranial aneurysm status post repair, hypertension, chronic tobacco abuse who presents after multiple episodes today at work when she became lightheaded and felt like she was about to pass out. 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 She states that she talk to the pharmacist who checked her blood pressure and found to be slightly low. She states that she drank some water and this improved her symptoms and she went back to work. However she states that she redeveloped the same symptoms prompting her to leave work and come to the emergency department for further assessment. She has a history of similar symptoms in the past without clear etiology. She denies any ongoing symptoms at the time of my assessment, states she feels well and would like to go home. She denies any headache, neck pain, chest pain or vomiting. She denies any recent medication adjustments. No recent head trauma. TRAVEL OUTSIDE OF THE [place] IN LAST 30 DAYS: No - Related Data Allergies/Adverse Reactions: onion Allergy (Severe, Verified 09/05/17 14:37) Anaphylaxis diphenhydramine HCl [From Benadryl] Allergy (Intermediate, Verified 09/05/17 14: 37) Hives Penicillins Allergy (Unknown, Verified 09/05/17 14:37) fentanyl Adverse Reaction (Severe, Verified 09/05/17 14:37) VOMITING morphine [Morphine] Adverse Reaction (Severe, Verified 09/05/17 14:37) VOMITING Past Medical History - General Information source: Patient, Relative - Social History Smoking Status: Current Every Day Smoker Chew tobacco use (# tins/day): No Frequency of alcohol use: Occasional Drug Abuse: None Lives with: Family Family History: CAD, Hyperlipidemia, Malignancy Patient has suicidal ideation: No Patient has homicidal ideation: No - Past Medical History Cardiac Medical History: Reports: Hx Hypercholesterolemia Denies: Hx Heart Attack, Hx Hypertension Pulmonary Medical History: Reports: Hx COPD Denies: Hx Asthma Neurological Medical History: Reports: Hx Cerebrovascular Accident - 2014 REHAB NO DEFICITS . Denies: Hx Seizures Endocrine Medical History: Reports: Hx Diabetes Mellitus Type 2, Hx Hypothyroidism Renal/ Medical History: Denies: Hx Peritoneal Dialysis GI Medical History: Denies: Hx Hepatitis, Hx Hiatal Hernia, Hx Ulcer Psychiatric Medical History: Denies: Hx Depression Infectious Medical History: Denies: Hx Hepatitis Past Surgical History: Reports: Hx Hysterectomy, Hx Orthopedic Surgery - Kg Knee Arthroplasty, Hx Thyroid Surgery. Denies: Hx Mastectomy, Hx Open Heart Surgery, Hx Pacemaker - Immunizations Hx Pneumococcal Vaccination: 03/21/15 Review of Systems - Review of Systems Notes: Constitutional: Negative for fever. HENT: Negative for sore throat. Eyes: Negative for visual changes. Cardiovascular: Negative for chest pain. Positive for lightheadedness Respiratory: Negative for shortness of breath. Gastrointestinal: Negative for abdominal pain, vomiting or diarrhea. Genitourinary: Negative for dysuria. Musculoskeletal: Negative for back pain. Skin: Negative for rash. Neurological: Negative for headaches, weakness or numbness. 10 point ROS negative except as marked above and in HPI. Physical Exam - Vital signs Vitals: Temp Pulse Resp BP Pulse Ox 97.6 F 94 14 130/64 H 93 09/05/17 14:39 09/05/17 14:39 09/05/17 14:39 09/05/17 14:39 09/05/17 14:39 Interpretation: Normal Notes: PHYSICAL EXAMINATION: GENERAL: Well-appearing, well-nourished and in no acute distress. HEAD: Atraumatic, normocephalic. EYES: Pupils equal round and reactive to light, extraocular movements intact, sclera anicteric, conjunctiva are normal. ENT: nares patent, oropharynx clear without exudates. Moist mucous membranes. NECK: Normal range of motion, supple without lymphadenopathy LUNGS: Breath sounds clear to auscultation bilaterally and equal. No wheezes rales or rhonchi. HEART: Regular rate and rhythm without murmurs ABDOMEN: Soft, nontender, normoactive bowel sounds. No guarding, no rebound. No masses appreciated. EXTREMITIES: Normal range of motion, no pitting or edema. No cyanosis. NEUROLOGICAL: No focal neurological deficits. Moves all extremities spontaneously and on command. PSYCH: Normal mood, normal affect. SKIN: Warm, Dry, normal turgor, no rashes or lesions noted. Course - Re-evaluation Re-evalutation: 09/05/17 19:29 Presentation of near syncope of unclear etiology. Patient normotensive, alert, without focal neurologic deficits at time of arrival. Denies syncope was during exertion. No preceding symptoms of palpitations, chest pain, or shortness of breath. Patient asymptomatic at time of arrival. EKG is without evidence of HCOM , right heart strain, ST changes to suggest ischemia, prolong QTc, delta wave, epsilon wave, or Brugada syndrome. Patient denies any family history of sudden cardiac , personal history of of structural heart disease. Patient denies any symptoms to suggest an acute PE, NH, TAD, SAH, seizure, or acute GI bleed as the etiology of their syncope today. On exam, no murmurs to suggest critical aortic stenosis as possible etiology. CT head unremarkable without evidence of recurrence of aneurysmal bleed. All laboratories otherwise unremarkable. The patient is not having any symptoms at the time of my assessment, is asking to go home so she can have something to eat. Her chest x-ray does note a incidental nodular density in the right upper lobe. I have provided the patient a copy of this x-ray report and have encouraged her to follow-up closely with her primary care doctor as she is a long-standing smoker to evaluate for any possibility of malignancy. Based on overall clinical history, exam findings, vitals, and patients appearance, I feel it is safe for patient to be discharged home at this time with close outpatient follow-up and strict return precautions. Patient is in agreement with this plan, has verbalized indications for return to ED, and questions have been answered. - Vital Signs Vital signs: Temp Pulse Resp BP Pulse Ox 98.7 F 64 9 L 128/58 H 97 09/05/17 19:51 09/05/17 18:45 09/05/17 19:51 09/05/17 19:51 09/05/17 19:51 - Laboratory Result Diagrams: 09/05/17 17:30 09/05/17 17:30 Laboratory results interpreted by me: 09/05/17 17:30 RDW 14.5 H - Diagnostic Test Radiology reviewed: Image reviewed, Reports reviewed Radiology results interpreted by me: 09/05/17 19:29 CT head: No acute intracranial bleed or mass Discharge - Discharge Clinical Impression: Near syncope, Lung nodule seen on imaging study Condition: Good Disposition: HOME, SELF-CARE Additional Instructions: You were seen today after an episode of almost passing out. Your EKG here is normal. At this time, we do not feel that your episode of passing out was from any life-threatening cause. Please drink plenty of fluids over the next several days. Return to emergency department if you have any further episodes of syncope, headache, weakness, numbness, chest pain, or shortness of breath. Please follow up closely with your primary care physician. Referrals: MARC PEARSON MD [Primary Care Provider] - Follow up as needed
[2017-09-05 19:53] VITALS: BP 128/58
--- NOTE | 2017-09-05 22:16 | EKG REPORT ---
SEVERITY:- BORDERLINE ECG - SINUS RHYTHM PROBABLE LEFT ATRIAL ABNORMALITY : Confirmed by: Jacki Bhatt 05-Sep-2017 22:16:13
== END 2017-09-05 20:01 | disposition home or self-care (01) ==
LOC: ER 14:33
DX: R55 Syncope and collapse (principal); R91.1 Solitary pulmonary nodule; I10 Essential (primary) hypertension; E11.9 Type 2 diabetes mellitus without complications; J44.9 Chronic obstructive pulmonary disease, unspecified; F17.200 Nicotine dependence, unspecified, uncomplicated; Z88.8 Allergy status to other drugs, medicaments and biological substances; Z87.892 Personal history of anaphylaxis; Z91.018 Allergy to other foods; Z86.73 Personal history of transient ischemic attack (TIA), and cerebral infarction without residual deficits
CPT/HCPCS: 93005; 99284; 36415; 82553; 82550; 85025; 85610; 85730; 80053; 84484; 71045; 70450; 93010; J7030